=== PATIENT | female | born 1985 ===

== ENCOUNTER 2020-03-17 11:06 | Day surgery (SDC) | payer OTHER ==
[~2020-03-17] VITALS: Ht 160 cm; Wt 58.0 kg
[2020-03-17] MEDS ORDERED: CHOLP PO (12:26)
[2020-03-17] MEDS ORDERED: PANT20 PO (12:27)
[2020-03-17] MEDS ORDERED: LARIN 21 1-201 EACH PO (12:28)
[2020-03-17] MEDS ORDERED: TEMA15 PO (12:28)
[2020-03-17] MEDS ORDERED: IRON18 MG PO (12:29)
[2020-03-17] MEDS ORDERED: POLY500 PO (12:30)
--- NOTE | 2020-03-17 13:55 | NUR ---
03/17/20 [address] History, Chart, Medications and Allergies reviewed before start of procedure.MONITOR INTACT WITH CONTINUOUS PULSE OXIMETRY AND INTERMITTENT BP.3-LEAD EKG REVIEWED WITH PHYSICIAN PRIOR TO START OF PROCEDURE.O2 VIA N/C INTACT THROUGHOUT SEDATION/PROCEDURE. PATIENT DETERMINED TO BE ASA APPROPRIATE FOR PROPOFOL SEDATION PRIOR TO START OF PROCEDURE BY DR. BRADY.
--- NOTE | 2020-03-17 15:10 | NUR ---
Discharge instructions reviewed with patient. Patient verbalizes understanding. Copy given to patient to take home. Patient States Post-Procedure ride home has been arranged. Discharged via wheelchair to private car for ride home.
== END 2020-03-17 23:21 | disposition home or self-care (01) ==
LOC: ORSCMMR 11:06 → ORD 14:15 → ORSCMMR 14:15
PROVIDERS: Student in an Organized Health Care Education/Training Program
PROC: 0DBF8ZX Excision of Right Large Intestine, Via Natural or Artificial Opening Endoscopic, Diagnostic (ICD-10-PCS; principal; 2020-03-17 14:15)
PROC: 0DB68ZX Excision of Stomach, Via Natural or Artificial Opening Endoscopic, Diagnostic (ICD-10-PCS; principal; 2020-03-17 14:15)
PROC: 0DB58ZX Excision of Esophagus, Via Natural or Artificial Opening Endoscopic, Diagnostic (ICD-10-PCS; principal; 2020-03-17 14:15)
PROC: 0DBG8ZX Excision of Left Large Intestine, Via Natural or Artificial Opening Endoscopic, Diagnostic (ICD-10-PCS; principal; 2020-03-17 14:15)
PROC: 0DB98ZX Excision of Duodenum, Via Natural or Artificial Opening Endoscopic, Diagnostic (ICD-10-PCS; principal; 2020-03-17 14:15)
DX: R10.12 Left upper quadrant pain (principal); R19.7 Diarrhea, unspecified; R12 Heartburn; F43.10 Post-traumatic stress disorder, unspecified; F41.9 Anxiety disorder, unspecified; Z79.899 Other long term (current) drug therapy
CPT/HCPCS: 88305; 88342; J2250; J2704; J7120